=== PATIENT | male | born 1935 | race Caucasian/White ===

== ENCOUNTER 2021-12-24 22:22 | Emergency (ER) | payer MEDICARE, SELFPAY ==
--- NOTE | 2021-12-24 00:20 | RAD_ITS ---
STUDY: X-RAY CHEST REASON FOR EXAM: Male, 86 years old. Weakness TECHNIQUE: Single AP portable view of the chest. COMPARISON: None. FINDINGS: There is a subtle focal opacity within the right lower lobe. There is no demonstrated pleural abnormality. Sternal cerclage wires are present from a prior sternotomy. Normal mediastinum and genesis. Normal visualized pulmonary arteries. Normal visualized aortic arch and descending thoracic aorta. There are diffuse degenerative changes of the visualized thoracic spine. Normal visualized ribs, clavicles, and shoulders. There is no demonstrated abnormality of the visualized soft tissue structures of the upper abdomen. RAD/Chest 1 View (Portable) IMPRESSION: Small focus of right lower lobe atelectasis and/or infiltrate. Status post sternotomy. Electronically Signed: Praveena Lau MD at 1:06 EDT ,
[2021-12-24 22:23] VITALS: BP 167/72; PULSE 70; RESP 17; TEMP 36.6; O2SAT 95; BMI 30.3
[2021-12-24 22:31] VITALS: BP 167/72; PULSE 70; RESP 17; TEMP 36.6; O2SAT 95; BMI 30.3
[2021-12-24 22:51] LABS: Bedside Glucose 266 mg/dL (74-106)
--- NOTE | 2021-12-24 23:34 | EKG12_ITS ---
Test Reason : DYSRHYTHMIA Blood Pressure : / mmHG Vent. Rate : 069 BPM Atrial Rate : 069 BPM P-R Int : 206 ms QRS Dur : 104 ms QT Int : 404 ms P-R-T Axes : 018 006 110 degrees QTc Int : 432 ms Normal sinus rhythm ST & T wave abnormality, consider lateral ischemia Abnormal ECG Confirmed by RAVINDER BAILEY, REE ([id number]), sound editor NAPOLEON BOND ([id number]) on 12/25/2021 9:53:49 AM Referred By: BB Confirmed By:REE CASTELLON MD
--- NOTE | 2021-12-24 23:36 | EX.ED.DYSGE1 ---
HPI History of Present Illness Chief Complaint: Hyperglycemia Detail of Chief Complaint: weakness, confused Informant: patient and family Onset/Context/Timing Onset: Today Context: Gradual Onset Quality: malaise Location: all over Current Severity: Moderate Maximum Severity: Moderate Worsened by: nothing Relieved by: nothing Narrative Narrative: Patient lives with his . She recently tested positive for COVID but does not have any symptoms. He has been weak and somewhat disoriented all day today. The is not here to provide history, the patient provides very poor history and provides very short answers all questions most of which are I do not know or maybe a little.. The daughter and son-in-law do not have a lot of information but attempted provide the history as well. Sounds like he is a type II diabetic on oral medications along with Lantus at night which she has not had yet tonight, but he has not missed any of his medications that he knows of, has felt poorly today but cannot say how. He denies any cough or shortness of breath, nausea, abdominal pain, headache, vision changes. When his daughter checked his blood sugar today prior to coming here, it was 398. The main way the daughter thought he was disoriented was when they tried to have him check his own blood sugar, he was not sure what to do. [facility] Medical History Anxiety Coronary bypass graft mechanical complication Diabetes High cholesterol HTN (hypertension) Home Medications alendronate 70 mg tablet 70 mg PO Q7D@0700 10/09/13 [History Last Taken Unknown] aspirin 81 mg chewable tablet 81 mg PO DAILY@0800 10/09/13 [History Last Taken Unknown] bisoprolol 5 mg-hydrochlorothiazide 6.25 mg tablet 1 tab PO DAILY 10/09/13 [History Last Taken Unknown] doxazosin 2 mg tablet (Cardura) 2 mg PO QHS 10/09/13 [History Last Taken Unknown] lorazepam 0.5 mg tablet 0.5 mg PO QHS PRN Sleep 10/09/13 [History Last Taken Unknown] metformin 1,000 mg tablet 1,000 mg PO BIDCM 10/09/13 [History Last Taken Unknown] simvastatin 80 mg tablet (Zocor) 80 mg PO QHS 10/09/13 [History Last Taken Unknown] insulin glargine 100 unit/mL (3 mL) subcutaneous pen (Lantus Solostar U-100 Insulin) 50 unit subcut QHS 12/24/21 [History Last Taken Unknown] lisinopril 2.5 mg tablet 2.5 mg PO DAILY 12/24/21 [History Last Taken Unknown] nirmatrelvir 300 mg (150 mg x2)-ritonavir 100 mg tablet,dose pack(EUA) (Paxlovid) See Rx Instructions PO .COMPLEX #30 tabs 12/25/21 [Rx Last Taken Unknown] Allergy/AdvReac Type Severity Reaction Status Date / Time isosorbide mononitrate Allergy Other Verified 12/24/21 22:36 [From Imdur] sulfamethoxazole Allergy NEEDS Verified 12/24/21 22:37 [From Bactrim] FOLLOW-UP trimethoprim [From Bactrim] Allergy NEEDS Verified 12/24/21 22:37 FOLLOW-UP Social History Smoking Status: Never smoker ROS ROS ED Review of Systems ROS Unobtainable: due to mental status Constitutional Constitutional ED: Reports malaise and weakness Eyes Eyes: Denies blurry vision or diplopia ENT ENT ED: Denies ear pain or sore throat Cardiovascular Cardiovascular: Denies chest pain Respiratory/Chest Respiratory/Chest: Denies cough or dyspnea Gastrointestinal Gastrointestinal: Denies abdominal pain, nausea or vomiting Genitourinary Genitourinary ED: Reports other Details: Urinary issues chronic patient cannot specify what they are Musculoskeletal Musculoskeletal: Denies back pain or neck pain Neurologic Neurologic: Denies headache(s), paresthesias or weakness EXAM Physical Exam Const Vital Signs: 12/24/21 22:23 12/24/21 22:31 12/25/21 00:31 Temperature 98 F 98 F Temperature Source Temporal Temporal Pulse Rate 70 70 67 Respiratory Rate 17 17 21 H Blood Pressure 167/72 H 167/72 H 145/74 H Blood Pressure Mean 103 103 97 Pulse Ox 95 95 93 Oxygen Delivery Method Room Air Room Air Room Air Positive well nourished and well developed Constitutional Narrative: Appears malaised but alert and answers questions General Appearance ED: well developed and NAD HEENT Reports moist mucous membranes normocephalic and atraumatic Eyes PERRL and EOMs intact bilaterally Neck full ROM, no lymphadenopathy and supple Chest Wall inspection of chest normal and palpation of chest normal Resp normal respiratory effort and clear to auscultation bilaterally Cardio regular rate, regular rhythm and no murmurs Rate: Negative for tachycardic GI non-tender and non-distended Auscultation: normoactive bowel sounds Palpation: soft Back/Spine no CVA tenderness General Back: other FROM Extremity normal to inspection General Extremety ED: Yes edema; Negative for pulses abnormal or tenderness General Extremity: edema bilateral lower extremity Details: moderate; Negative for pulses abnormal Neuro oriented x3, CN's II-XII intact bilaterally and no sensory deficits noted Sensorium / Orientation: awake and alert Motor Exam: strength 5/5 throughout Skin no rashes or lesions noted and no wounds MDM MDM MDM Narrative Medical decision making narrative: Basically, patient malaised with hyperglycemia. Although initially he was not sure if he was coughing or not, he states he is having some cough that he thinks may be started yesterday. He is testing positive for COVID. The rest of his work-up is basically unremarkable except for the mild hyperglycemia, 270s here. I gave him some insulin to help bring that down as well as some fluids for his prerenal azotemia. CT of the head negative, EKG and troponin within normal limits, and his chest x-ray shows some atelectasis but I do not think this represents any pneumonia. He is not hypoxic. His vital signs are normal. Stable for discharge home with Paxlovid; he is not vaccinated, he is on no medications that would be dangerous to discontinue temporarily, just the simvastatin and given appropriate instructions regarding the doxazosin. Discussed with patient and family they are comfortable with that, I think the patient is not grossly confused, he is oriented x3, he just really feels poorly. The daughter confirms that he does have help to get to and from the bathroom, I encouraged him to stay hydrated, and gave him appropriate reasons to return and encouraged checking pulse ox at home if able. Lab Data Attestation: I reviewed the patient's lab results. Labs: Laboratory Results - last 24 hr 12/24/21 12/24/21 12/24/21 22:28 23:20 23:20 WBC 6.7 RBC 4.68 Hgb 14.5 Hct 43.5 MCV 92.9 MCH 31.0 MCHC 33.3 RDW Std Deviation 43.9 RDW Coeff of Tommie 12.9 Plt Count 130 L MPV 10.5 Immature Gran % (Auto) 0.400 Neut % (Auto) 72.9 H Lymph % (Auto) 14.8 L [place] % (Auto) 9.1 Eos % (Auto) 2.4 Baso % (Auto) 0.4 Absolute Neuts (auto) 4.9 Absolute Lymphs (auto) 0.99 Nucleated RBC % 0 Sodium 136 Potassium 3.9 Chloride 101 Carbon Dioxide 27.0 Anion Gap 8 BUN 24 H Creatinine 0.98 Estim Creat Clear Calc 61.59 Est GFR (MDRD) Af Amer 94 Est GFR (MDRD) Non-Af 78 BUN/Creatinine Ratio 24.6 H Glucose 274 H Calcium 10.0 Troponin I High Sens 17 Urine Color Urine Clarity Urine pH Ur Specific [place] Urine Protein Urine Glucose (UA) Urine Ketones Urine Occult Blood Urine Nitrite Urine Bilirubin Urine Urobilinogen Ur Leukocyte Esterase Urine RBC Urine WBC Ur Squamous Epith Cells Urine Bacteria Urine Mucus POC Glucose 266 H 12/25/21 12/25/21 00:01 00:54 WBC RBC Hgb Hct MCV MCH MCHC RDW Std Deviation RDW Coeff of [place] Plt Count MPV Immature Gran % (Auto) Neut % (Auto) Lymph % (Auto) [place] % (Auto) Eos % (Auto) Baso % (Auto) Absolute Neuts (auto) Absolute Lymphs (auto) Nucleated RBC % Sodium Potassium Chloride Carbon Dioxide Anion Gap BUN Creatinine Estim Creat Clear Calc Est GFR (MDRD) Af Amer Est GFR (MDRD) Non-Af BUN/Creatinine Ratio Glucose Calcium Troponin I High Sens Urine Color Yellow Urine Clarity Clear Urine pH 7.0 Ur Specific [place] 1.015 Urine Protein 100 H Urine Glucose (UA) 1000 H Urine Ketones 50 H Urine Occult Blood 25 H Urine Nitrite Negative Urine Bilirubin Negative Urine Urobilinogen Normal Ur Leukocyte Esterase Negative Urine RBC 0-5 SEEN Urine WBC 0 SEEN Ur Squamous Epith Cells 0 SEEN Urine Bacteria RARE Urine Mucus 0 SEEN POC Glucose 219 H Radiography Diagnostic Testing: Clinical Impression(s) from Imaging Studies Chest X-Ray 12/24/21 00:20 IMPRESSION: Small focus of right lower lobe atelectasis and/or infiltrate. Status post sternotomy. Electronically Signed: Praveena Lau MD at 1:06 EDT , Brain CT 12/25/21 23:33 IMPRESSION: Atrophy. No visualized acute hemorrhage infarct or edema. Electronically Signed: Praveena Lau MD at 1:00 EDT , Rhythm Strip Rhythm Strip: Sinus Rhythm Rate: 70 Ectopy: None EKG Initial EKG: Attestation: I personally reviewed and interpreted this EKG as follows: Interpretation: Sinus Rhythm, No Acute Injury Pattern, AV Block (1st deg) and Non-Specific ST Changes Prior EKG tracings: available for review Prior: Unchanged (2013) Discharge Plan Triage Chief Complaint: Hyperglycemia ED Provider: [facility] Dx/Rx/DC Orders Clinical Impression: COVID-19, Hyperglycemia due to type 2 diabetes mellitus Instructions: Coronavirus Disease 2019 (COVID-19): Caring for Yourself or Others, ED Diabetic Hyperglycemia Prescriptions: New Paxlovid (EUA) 300 mg (150 mg x 2)-100 mg tablets,dose pack See Rx Instructions .ROUTE .COMPLEX Qty: 30 0RF Rx Instructions: take TWO 150 mg tablets of nirmatrelvir with ONE 100 mg tablet of ritonavir twice daily for 5 days Continued alendronate 70 MG tablet 70 mg PO Q7D@0700 Rx Instructions: saturday bisoprolol-hydrochlorothiazide 1 TAB tablet 1 tab PO DAILY Rx Instructions: 5-6.25 mg lorazepam 0.5 MG tablet 0.5 mg PO QHS PRN (Reason: Sleep) aspirin 81 MG tablet,chewable 81 mg PO DAILY@0800 doxazosin [Cardura] 2 MG tablet 2 mg PO QHS metformin 1,000 MG tablet 1,000 mg PO BIDCM insulin glargine [Lantus Solostar U-100 Insulin] 100 unit/mL (3 mL) insulin pen 50 unit SUBCUT QHS lisinopril 2.5 mg tablet 2.5 mg PO DAILY Held simvastatin [Zocor] 80 MG tablet 80 mg PO QHS Hold Instructions: Resume on 01/03/22. Primary Care Provider: Cruz Armenta Referrals: Cruz Armenta DO [Primary Care Provider] - As Needed Activity Restrictions/Additional Instructions: Try to get a home portable pulse oximeter and closely watch your oxygen levels periodically. If you stay below 90% for more than a minute or so, and/or you are feeling like your breathing is getting worse, return to the emergency department for further evaluation. Currently, CDC recommendations state that you should stay home through day 5 of symptoms, then as long as symptoms are improving, if you need to go to work or somewhere else you may for days 6-10 as long as you are wearing a mask the entire time. If you are feeling better after day 10 you may resume life is normal. If you feel like you are going to pass out each time you stand up, stop your doxazosin until 3 days after you finish the Paxlovid. Disposition Disposition: Home, Self Care
[2021-12-24] MEDS: Insulin Lispro 100 UNIT/ML INSULN.PEN 8 UNIT SC (23:44)
[2021-12-24 23:56] LABS: Absolute Lymphocyte Count 0.99 X10^3/uL (0.83-4.51); Absolute Neutrophil Count 4.9 X10^3/uL (2.0-7.7); Basophil# 0.03 X10^3/uL; Basophil% 0.4 % (0-1); Eosinophil# 0.16 X10^3/uL; Eosinophils% 2.4 % (0-5); Hematocrit 43.5 % (40-54); Hemoglobin 14.5 g/dL (13.0-16.5); Lymphocyte # 0.99 X10^3/ul (0.83-4.51); Lymphocyte % 14.8 % (19-41); Mean Corp Hgb Conc 33.3 g/dL (32-36); Mean Corpuscular Volume 92.9 fL (80-94); Mean Platelet Vol. 10.5 fl (6.2-12.0); Monocyte# 0.61 X10^3/uL; Monocyte% 9.1 % (0-10); NRBC Flagged by Analyzer 0 % (0-5); Neutrophil # 4.86 X10^3/uL (2.7-7.7); Neutrophil % 72.9 % (47-70); Platelet Count 130 K/mm3 (150-450); RBC Distribution Width CV 12.9 % (11.6-14.6); RBC Distribution Width SD 43.9 fl (35.1-43.9); Red Blood Count 4.68 M/mm3 (4.6-6.2); White Blood Count 6.7 K/mm3 (4.4-11.0)
[2021-12-25 00:04] LABS: Mucous, Urine 0 SEEN /hpf (<or=2+); Squamous Epithelial Cells - UA 0 SEEN /hpf (0-5); White Blood Cells 0 SEEN /hpf (0-5)
[2021-12-25] MEDS: 0.9% Normal Saline 1,000 ML 150 ML IV (00:07)
[2021-12-25 00:08] LABS: Color, Urine Yellow (Yellow); Glucose, Dipstick 1000 mg/dl (Normal); Ketone-Dipstick 50 mg/dl (Negative); Leukocyte Esterase-Dipstick Negative /ul (Negative); Nitrite-Dipstick Negative (Negative); Occult Blood-Urine 25 /ul (Negative); Protein-Dipstick 100 mg/dl (Negative); Specific Gravity, Urine 1.015 (1.002-1.030); Urine Bilirubin Dipstick Negative (Negative); Urine Clarity Clear (Clear); Urine Urobilinogen Normal (Normal)
[2021-12-25 00:15] LABS: Bacteria RARE /hpf (None Seen); Red Blood Cells-Urine 0-5 SEEN /hpf (0-5)
[2021-12-25 00:20] LABS: Anion Gap 8 (5-15); BUN 24 mg/dL (7-18); BUN/Creat Ratio 24.6 RATIO (10-20); Chloride 101 mmol/L (98-107); Creatinine, Serum 0.98 mg/dL (0.70-1.30); EST Glomerular Filtration Rate 78 mL/min (>60); Est Glom Filt Rate - Afr Amer 94 mL/min (>60); Estimated Creatinine Clearance 61.59 ml/min; Glucose 274 mg/dL (74-106); Potassium 3.9 mmol/L (3.5-5.1); Sodium Level 136 mmol/L (136-145); Troponin-I HS 17 pg/mL (3.0-78.0)
[2021-12-25 00:31] VITALS: BP 145/74; PULSE 67; RESP 21; O2SAT 93
[2021-12-25 01:16] LABS: Bedside Glucose 219 mg/dL (74-106)
[2021-12-25 01:50] VITALS: BP 140/74; PULSE 70; RESP 18; O2SAT 94
--- NOTE | 2021-12-25 23:33 | CT_ITS ---
STUDY: CT BRAIN WITHOUT CONTRAST REASON FOR EXAM: Male, 86 years old. Altered mental status RADIATION DOSAGE (If Supplied By Facility): CTDIvol = ( 44.99 ) mGy, DLP = ( 914.22 ) mGycm TECHNIQUE: Transaxial CT imaging of the brain was performed without administration of intravenous contrast material. Individualized dose optimization techniques were used for this CT. COMPARISON: No relevant priors. FINDINGS: Normal soft tissue structures. Normal calvarium. There is calcification of the bilateral vertebral arteries. There is mild cerebral atrophy with widening of the extra-axial spaces and ventricular dilatation. There are areas of decreased attenuation within the white matter tracts of the supratentorial brain, consistent with microvascular disease changes. There are small punctate calcifications of the basal ganglia which are seen in the aging brain as a normal variant. Normal brainstem. There is mild cerebellar atrophy. There is no intracranial hemorrhage. There are no findings of an acute ischemic infarction. Ethmoid sinus mucosal thickening. CT/Brain/Head without Contrast IMPRESSION: Atrophy. No visualized acute hemorrhage infarct or edema. Electronically Signed: Praveena Lau MD at 1:00 EDT Reading Location ID and State: [facility] / [place] Tel , Service support ,
== END 2021-12-25 02:04 | disposition home or self-care (01) ==
PROVIDERS: Emergency Provider Emergency Medicine; PCP Preventive Medicine Occupational Medicine; Visit Provider Emergency Medicine
DX: U07.1 COVID-19 (principal); E11.65 Type 2 diabetes mellitus with hyperglycemia; Z79.4 Long term (current) use of insulin; I10 Essential (primary) hypertension; E78.00 Pure hypercholesterolemia, unspecified; R41.0 Disorientation, unspecified; R53.1 Weakness; J98.11 Atelectasis
CPT/HCPCS: 70450; 71045; 80048; 81001; 82962; 84484; 85025; 87811; 93005; 96360; 96361; 99285; P9612; A4216

== ENCOUNTER → 2024-05-21 | Outpatient (REF) | payer SELFPAY ==
[2024-05-21 22:07] LABS: Mucous, Urine 0 SEEN /hpf (<or=2+); Squamous Epithelial Cells - UA 0 SEEN /hpf (0-5)
[2024-05-21 22:53] LABS: Color, Urine Brown (Yellow); Glucose, Dipstick Normal (Normal); Ketone-Dipstick 5 mg/dl (Negative); Leukocyte Esterase-Dipstick 25 /ul (Negative); Nitrite-Dipstick Negative (Negative); Occult Blood-Urine 250 /ul (Negative); Protein-Dipstick 100 mg/dl (Negative); Urine Bilirubin Dipstick Negative (Negative); Urine Clarity Cloudy (Clear); Urine Urobilinogen Normal (Normal); Urine pH 6.5 (5.0 - 8.0)
[2024-05-22 00:23] LABS: Red Blood Cells-Urine > 100 SEEN /hpf (0-5); White Blood Cells 5-10 SEEN /hpf (0-5)
[2024-05-22 00:24] LABS: Bacteria 1+ /hpf (None Seen)
== END | disposition home or self-care (01) ==
LOC: LABSPEC 22:03
PROVIDERS: PCP Preventive Medicine Occupational Medicine; Referring Provider Family Medicine; Visit Provider Family Medicine
DX: R31.9 Hematuria, unspecified (principal); R30.0 Dysuria
CPT/HCPCS: 81001; 87086